=== PATIENT | female | born 1990 | race Asian ===

== ENCOUNTER 2019-04-12 22:09 | Emergency (ER) | payer OTHER ==
[2019-04-12 22:40] LABS: Influenza B Molecular POSITIVE (Negative)
[2019-04-13] MEDS ORDERED: Oseltamivir CAP* 75 MG CAP PO ONE (04:03)
--- NOTE | 2019-04-13 04:04 | ED ---
Influenza-Like Illness - HPI Summary HPI Summary: Patient is a 28 y/o F presenting to [facility] with complaints of cough, rhinorrhea, and congestion. Sx onset the evening of 04/11/19. Patient denies fever, N/V/D, and decreased appetite. PMHx, PSHx, and daily medications are denied. She did not have the flu shot this season. Patient notes that she returned from [place] on March 17 but states that she was not near [facility]. NKDA reported. Home medications and allergies are reviewed. - History of Current Complaint Chief Complaint: EDUpperRespComplaint Time Seen by Provider: 04/13/19 03:50 Hx Obtained From: Patient Onset/Duration: Lasting Days, Still Present Severity: Mild Associated Signs & Symptoms: Cough, Nasal Congestion Related Hx: Possible Flu/Infectious Exposure - Allergy/Home Medications Allergies/Adverse Reactions: Allergies Allergy/AdvReac Type Severity Reaction Status Date / Time No Known Allergies Allergy Verified 04/12/19 22:13 PMH/Surg Hx/FS Hx/Imm Hx Endocrine/Hematology History: Denies: Hx Diabetes Cardiovascular History: Denies: Hx Hypertension Infectious Disease History: No Infectious Disease History: Denies: Traveled Outside the [place] in Last 30 Days - Family History Known Family History: Negative: Hypertension, Diabetes - Social History Occupation: Student Substance Use Type: Reports: None - Additional Comments History Additional Comments: No PMHx, no PSHx. Review of Systems Negative: Fever Positive: Nasal Discharge Respiratory: Other - positive - congestion Positive: Cough Gastrointestinal: Other - negative - decreased appetite Negative: Vomiting, Diarrhea, Nausea All Other Systems Reviewed And Are Negative: Yes Physical Exam - Summary Physical Exam Summary: General: Well-developed, Well-nourished female. Mildly ill-appearing. HEENT: Normocephalic, Atraumatic. Clear Nasal Discharge noted. Eyes: Conjuctiva normal, PERRL. Oropharynx: Erythematous, mucous membranes moist, (-) exudates. Neck: Soft, FROM, (-) lymphadenopathy, (-) thyromegaly, (-) JVD. Cardiovascular: Normal sinus rhythm, (-) murmur. Lungs: Clear to auscultation bilaterally (-) wheezes, (-) rales, (-) rhonchi. Abdomen: Soft, non-tender, non-distended, (-) organomegaly, normal bowel sounds. Back: (-) CVA tenderness Extremities: No edema. Skin: Warm, dry, (-) rash. Neuro: Alert and oriented x3, moves all extremities equally. No ataxia. No gait disturbance. No sensory deficit. Normal strength, normal sensation. Psychiatric: Mood normal, affect normal. Triage Information Reviewed: Yes Vital Signs On Initial Exam: Initial Vitals Temp Pulse Resp BP Pulse Ox 98 F 73 15 128/85 98 04/12/19 22:12 04/12/19 22:12 04/12/19 22:12 04/12/19 22:12 04/12/19 22:12 Vital Signs Reviewed: Yes Procedures - Sedation Patient Received Moderate/Deep Sedation with Procedure: No Diagnostics - Vital Signs Vital Signs Temp Pulse Resp BP Pulse Ox 04/13/19 03:00 98 F 71 15 112/62 100 04/13/19 01:13 97.9 F 83 15 104/81 100 04/12/19 22:12 98 F 73 15 128/85 98 - Laboratory Lab Results: Lab Results 04/12/19 Range/Units 22:14 Influenza A (Rapid) Not Reportable Influenza B (Rapid) Positive H (Negative) Lab Statement: Any lab studies that have been ordered have been reviewed, and results considered in the medical decision making process. Flu Symptom Course/Dx - Course Course Of Treatment: 28-year-old female presents with less than 48 hours symptoms of cough and congestion. Chest tightness. No high fevers. Denies any significant shortness of breath. Cough is nonproductive. No nausea vomiting or diarrhea. Patient is mildly ill appearing with no significant findings on physical exam. Workup demonstrates positive flu B. Started on Tamiflu. Discharged home. Advised off classes for the rest of the week. Tamiflu prescription given. Plenty of fluids. Follow-up with PCP. Positive for any worsening symptoms. - Diagnoses Provider Diagnoses: Influenza B Discharge ED - Sign-Out/Discharge Documenting (check all that apply): Patient Departure - discharge - Discharge Plan Condition: Stable Disposition: HOME Prescriptions: Oseltamivir SUSP 75 MG dose* [Tamiflu SUSP 75 MG dose*] 75 mg PO BID #10 oral.[email or web address] Patient Education Materials: Influenza (ED) Forms: *School Release Referrals: JOHNSON May [[facility], APPLICATION, OTHER] - 3 Days Additional Instructions: PLEASE RETURN TO ED FOR ANY NEW OR WORSENING SYMPTOMS. PLEASE FOLLOW UP WITH YOUR PRIMARY CARE PHYSICIAN WITHIN THREE DAYS. - Billing Disposition and Condition Condition: STABLE Disposition: Home - Attestation Statements Document Initiated by Kala: Yes Documenting Scribe: MIKEY LOCKWOOD Provider For Whom Kala is Documenting (Include Credential): PO MICHEL MD Scribe Attestation: IMIKEY, scribed for PO MICHEL MD on 04/13/19 at 0637. Scribe Documentation Reviewed: Yes Provider Attestation: The documentation as recorded by the MIKEY thibodeaux accurately reflects the service I personally performed and the decisions made by me, PO MICHEL MD Status of Scribe Document: Viewed
[2019-04-13 04:43] VITALS: BP 112/63
== END 2019-04-13 04:42 | disposition home or self-care (01) ==
LOC: ED 22:09
DX: J10.1 Influenza due to other identified influenza virus with other respiratory manifestations (principal); R05 Cough
CPT/HCPCS: 99282; A9270-GY